=== PATIENT | female | born 1965 | race African-American/Black ===

== ENCOUNTER 2019-08-17 19:27 | Inpatient (IN) | payer OTHER ==
[2019-08-18] MEDS: HYDROcodone/Acetaminophen 10/325 mg Tablet PO PRN ×5 (00:25→21:26)
[2019-08-18] MEDS ORDERED: Non-Formulary Item 1 EACH (Omeprazole [Omeprazole] 20 MG) PO PRN (07:07)
[2019-08-18] MEDS ORDERED: TRIAMCINOLONE ACETONIDE TOP SCH (09:00)
[2019-08-18] MEDS ORDERED: Non-Formulary Item 1 EACH (Atorvastatin Calcium [Lipitor] 20 MG) PO SCH (09:00)
[2019-08-18] MEDS: Potassium Chloride 10 MEQ TAB PO SCH (09:33)
[2019-08-18] MEDS: Ferrous Gluconate 324 MG TAB PO SCH ×2 (09:34→21:18)
[2019-08-18] MEDS: Aspirin 81 mg Enteric Coated Tablet PO SCH ×2 (09:34→21:18)
[2019-08-18] MEDS: Triamcinolone 0.1% Cream 15 GM TUBE TOP SCH ×2 (09:35→21:21)
[2019-08-18] MEDS: Ibuprofen 800 MG TAB PO PRN (09:38)
[2019-08-18] MEDS ORDERED: Polyethylene Glycol 3350 17 GM Packet PO PRN (18:26)
[2019-08-18] MEDS ORDERED: FLU VACC QS2019-20(6MOS UP)/PF 60 MCG/0.5 ML SYRINGE IM ONE (21:00)
[2019-08-18] MEDS: Docusate 100 MG CAP PO SCH (21:17)
[2019-08-18] MEDS: Atorvastatin Calcium 10 MG TAB PO SCH (21:18)
[2019-08-19] MEDS: HYDROcodone/Acetaminophen 10/325 mg Tablet PO PRN ×4 (02:35→21:04)
[2019-08-19 05:07] LABS: #Basophils 0.1 thou/uL (0.0-0.2); #Eosinphils 0.5 thou/uL (0.0-0.7); #Lymphocytes 1.4 thou/uL (1.20-3.40); #Monocytes 0.6 thou/uL (0.11-0.59); #Neutrophils 4.2 thou/uL (1.40-6.50); %Eosinophils 7.4 % (0.0-10.0); %Lymphocytes 20.6 % (21.0-51.0); %Monocytes 8.7 % (0.0-10.0); %Neutrophils 61.4 % (42.0-75.0); Hemoglobin 9.2 g/dL (12.0-16.0); Mean Corpuscular HGB CONC 32.9 g/dL (32.0-36.0); Mean Corpuscular Hemoglobin 27.3 pg (27.0-31.0); Mean Corpuscular Volume 83.2 fL (78.0-98.0); Mean Platelet Volume 5.3 fL (7.4-10.4); Platelet Count 371 thou/uL (130-400); RBC Distribution Width 15.2 % (11.5-14.5); Red Blood Cell (RBC) Count 3.35 mill/uL (4.20-5.40); White Blood Cell (WBC) Count 6.9 thou/uL (4.8-10.8)
[2019-08-19 06:08] LABS: ALT (SGPT) Less than 7 U/L (8-55); AST (SGOT) 14 U/L (5-34); Albumin 3.2 g/dL (3.5-5.0); Alkaline Phosphatase 107 U/L (40-110); Anion Gap 15 mmol/L (10-20); BUN (Urea Nitrogen) 6 mg/dL (9.8-20.1); Bilirubin, Total 0.4 mg/dL (0.2-1.2); Calc. Creatinine Clearance 154 mL/min (70-130); Calcium 8.4 mg/dL (7.8-10.44); Carbon Dioxide 23 mmol/L (22-29); Chloride 106 mmol/L (98-107); Estimated GFR-MDRD Greater than 90; Globulin 3.8 g/dL (2.4-3.5); Glucose 113 mg/dL (70-105); Potassium 3.7 mmol/L (3.5-5.1); Sodium 140 mmol/L (136-145)
[2019-08-19] MEDS: Ferrous Gluconate 324 MG TAB PO SCH ×2 (08:53→20:59)
[2019-08-19] MEDS: Multivitamin W/ Minerals 1 TAB PO SCH (08:54)
[2019-08-19] MEDS: Potassium Chloride 10 MEQ TAB PO SCH (08:57)
[2019-08-19] MEDS: Aspirin 81 mg Enteric Coated Tablet PO SCH ×2 (08:58→20:59)
[2019-08-19] MEDS: Docusate 100 MG CAP PO SCH ×2 (08:59→20:59)
[2019-08-19] MEDS: Triamcinolone 0.1% Cream 15 GM TUBE TOP SCH ×2 (09:00→20:59)
[2019-08-19] MEDS ORDERED: Polyethylene Glycol 3350 17 GM Packet PO SCH (09:00)
[2019-08-19] MEDS: Atorvastatin Calcium 10 MG TAB PO SCH (20:59)
[2019-08-20] MEDS: HYDROcodone/Acetaminophen 10/325 mg Tablet PO PRN ×5 (03:24→22:53)
[2019-08-20] MEDS: Aspirin 81 mg Enteric Coated Tablet PO SCH ×2 (08:56→20:28)
[2019-08-20] MEDS: Docusate 100 MG CAP PO SCH ×3 (08:56→20:30)
[2019-08-20] MEDS: Ferrous Gluconate 324 MG TAB PO SCH ×2 (08:57→20:28)
[2019-08-20] MEDS: Triamcinolone 0.1% Cream 15 GM TUBE TOP SCH ×2 (08:57→20:29)
[2019-08-20] MEDS: Potassium Chloride 10 MEQ TAB PO SCH (08:58)
[2019-08-20] MEDS: Multivitamin W/ Minerals 1 TAB PO SCH (08:58)
[2019-08-20] MEDS: Atorvastatin Calcium 10 MG TAB PO SCH (20:28)
[2019-08-21] MEDS: HYDROcodone/Acetaminophen 10/325 mg Tablet PO PRN ×4 (03:48→21:07)
[2019-08-21] MEDS: Aspirin 81 mg Enteric Coated Tablet PO SCH ×2 (09:38→21:06)
[2019-08-21] MEDS: Potassium Chloride 10 MEQ TAB PO SCH (09:38)
[2019-08-21] MEDS: Multivitamin W/ Minerals 1 TAB PO SCH (09:38)
[2019-08-21] MEDS: Docusate 100 MG CAP PO SCH ×2 (09:40→21:09)
[2019-08-21] MEDS: Ferrous Gluconate 324 MG TAB PO SCH ×2 (09:40→21:06)
[2019-08-21] MEDS: Triamcinolone 0.1% Cream 15 GM TUBE TOP SCH ×2 (09:54→21:09)
--- NOTE | 2019-08-21 18:41 | HP ---
PRIMARY CARE PHYSICIAN: Lynn Johnson MD CHIEF COMPLAINT: Skilled care with physical and occupational therapy, status post right knee replacement. HISTORY OF PRESENT ILLNESS: Ms. Yu is a 54-year-old female with congestive heart failure, diastolic dysfunction, gastroesophageal reflux disease, hypertension, iron-deficiency anemia, rheumatoid arthritis, and degenerative knee joint disease, underwent elective right knee replacement on 08/10/[address] Ledemza. Patient did fine intra and postoperatively. Prior to her transfer, patient started physical therapy, she was able to maintain 50% partial weightbearing on right lower extremity. She was walking 100 feet using rolling walker, however, had significant fatigue and weakness. She has a poor gait, decreased strength and endurance hence recommendation for skilled rehabilitation with physical and occupational therapy. Today, she walked 80 feet using rolling walker with standby assistance. PAST MEDICAL HISTORY: 1. Congestive heart failure, diastolic dysfunction with EF of 55% to 60%. 2. Gastroesophageal reflux disease. 3. Hypertension. 4. Iron-deficiency anemia, under Dr. Moreno. 5. Rheumatoid arthritis, under Dr. Aldana. SURGICAL HISTORY: 1. Right knee replacement. 2. x2. 3. Tubal ligation. HOSPITALIZATION: Congestive heart failure exacerbation in 04/2014. ALLERGIES: POWDERS CAUSING RASH AND GLOVES. FAMILY HISTORY: Father alive, diagnosed with heart disease. Mother alive with hyperlipidemia. Maternal grandmother , unknown type of cancer. Paternal aunt had breast cancer. The patient has two brothers and two sisters. 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 Patient is single, has two boys. MEDICATION: 1. Aspirin 81 mg b.i.d. 2. Ferrous sulfate 324 mg b.i.d. 3. Multivitamin daily. 4. Metoprolol 25 mg daily. 5. Klor-Con 10 mEq daily. 6. Lipitor 20 mg daily. 7. Omeprazole 20 mg daily p.r.n. 8. Triamcinolone acetate 0.1% cream to affected areas as needed. 9. Methotrexate 50 mg/2 mL, 0.5 mL injection once a week. 10. Hydroxychloroquine 200 mg one tablet once a day. 11. Mobic 15 mg daily. 12. Folic acid 1 mg daily. REVIEW OF SYSTEMS: GENERAL: No fever, no chills, no weight loss. HEENT: Negative for blurring of vision. Negative for sore throat. RESPIRATORY: Negative for cough. Negative for dyspnea. CARDIAC: Negative for chest pain. Negative for cyanosis. Occasional lower extremity swelling. GI: Positive for constipation, improved with Colace. Negative for nausea or vomiting. GENITOURINARY: Negative for dysuria or hematuria. NEUROLOGIC: Negative for memory loss. Negative for seizures. Negative for paresthesias. MUSCULOSKELETAL: Positive for right knee pain related to surgery. Positive for left knee pain, likely secondary from arthritis. PSYCH: No anxiety or depression. PHYSICAL EXAMINATION: VITAL SIGNS: Blood pressure 134/63, temperature 98.9, pulse rate of 75, RR of 18, and O2 saturation 98% on room air. GENERAL: Patient is alert, oriented, not in respiratory distress. HEENT: Normocephalic, atraumatic. Pupils equal, reactive to light. NECK: Supple. Negative for lymphadenopathy. CHEST AND LUNGS: Symmetrical expansion. Clear to auscultation. HEART: Regular rate and rhythm. Negative for murmur. ABDOMEN: Obese, soft, normoactive bowel sounds. Negative for CVA tenderness. MUSCULOSKELETAL: Right knee, positive for right knee swelling with minimal effusion, no ecchymosis or bruising. Positive for medial and joint line tenderness. Decreased range of motion. Left lower extremity, no visible deformities. PSYCH: Appropriate affect and demeanor. ASSESSMENT: 1. Right lower extremity weakness, status post right total knee replacement on 08/10/2019. 2. Hypertension. 3. Congestive heart failure, diastolic dysfunction. 4. Rheumatoid arthritis. 5. Gastroesophageal reflux disease. 6. Iron-deficiency anemia. 7. Hyperlipidemia. PLAN: Continue physical and occupational therapy. Prognosis for significant improvement reasonable time appears good. We will monitor for infection, bleeding, and side effects of current medication. She will participate with physical therapy to address strength, range of motion, transfers, gait training, family training , and safety training with progression to home exercises. She will participate with OT to address ADLs. We will reconcile hospital medication and adjust dosage prior to her discharge. shopper marketing manager to address how the patient can be discharged safely and in a timely manner. Anticipate discharge to home in about two weeks. Job ID: [id number] MTDD
[2019-08-21] MEDS: Hydroxychloroquine Sulfate 200 MG TAB PO SCH (21:07)
[2019-08-21] MEDS: Atorvastatin Calcium 10 MG TAB PO SCH (21:07)
[2019-08-22] MEDS: HYDROcodone/Acetaminophen 10/325 mg Tablet PO PRN ×4 (02:57→20:53)
[2019-08-22] MEDS: Folic Acid 1 MG TAB PO SCH (08:22)
[2019-08-22] MEDS: Aspirin 81 mg Enteric Coated Tablet PO SCH ×2 (08:23→20:52)
[2019-08-22] MEDS: Multivitamin W/ Minerals 1 TAB PO SCH (08:23)
[2019-08-22] MEDS: Hydroxychloroquine Sulfate 200 MG TAB PO SCH ×2 (08:23→20:53)
[2019-08-22] MEDS: Docusate 100 MG CAP PO SCH ×2 (08:23→20:53)
[2019-08-22] MEDS: Ferrous Gluconate 324 MG TAB PO SCH ×2 (08:23→20:52)
[2019-08-22] MEDS: Potassium Chloride 10 MEQ TAB PO SCH (08:24)
[2019-08-22] MEDS: Triamcinolone 0.1% Cream 15 GM TUBE TOP SCH ×2 (08:26→20:55)
[2019-08-22] MEDS: Ibuprofen 800 MG TAB PO PRN (17:36)
[2019-08-22] MEDS: Atorvastatin Calcium 10 MG TAB PO SCH (20:52)
[2019-08-23] MEDS: HYDROcodone/Acetaminophen 10/325 mg Tablet PO PRN ×4 (03:24→23:39)
[2019-08-23] MEDS: Potassium Chloride 10 MEQ TAB PO SCH (08:49)
[2019-08-23] MEDS: Aspirin 81 mg Enteric Coated Tablet PO SCH ×2 (08:49→20:35)
[2019-08-23] MEDS: Folic Acid 1 MG TAB PO SCH (08:50)
[2019-08-23] MEDS: Multivitamin W/ Minerals 1 TAB PO SCH (08:50)
[2019-08-23] MEDS: Ferrous Gluconate 324 MG TAB PO SCH ×2 (08:50→20:36)
[2019-08-23] MEDS: Hydroxychloroquine Sulfate 200 MG TAB PO SCH ×2 (08:50→20:36)
[2019-08-23] MEDS: Docusate 100 MG CAP PO SCH ×2 (08:50→20:35)
[2019-08-23] MEDS: Triamcinolone 0.1% Cream 15 GM TUBE TOP SCH ×2 (08:52→20:37)
[2019-08-23] MEDS: Ibuprofen 800 MG TAB PO PRN (13:51)
[2019-08-23] MEDS: Atorvastatin Calcium 10 MG TAB PO SCH (20:35)
[2019-08-24] MEDS: HYDROcodone/Acetaminophen 10/325 mg Tablet PO PRN ×3 (05:48→20:10)
[2019-08-24] MEDS: Multivitamin W/ Minerals 1 TAB PO SCH (09:21)
[2019-08-24] MEDS: Aspirin 81 mg Enteric Coated Tablet PO SCH ×2 (09:21→20:10)
[2019-08-24] MEDS: Ferrous Gluconate 324 MG TAB PO SCH ×2 (09:22→20:10)
[2019-08-24] MEDS: Docusate 100 MG CAP PO SCH ×2 (09:22→20:11)
[2019-08-24] MEDS: Potassium Chloride 10 MEQ TAB PO SCH (09:22)
[2019-08-24] MEDS: Hydroxychloroquine Sulfate 200 MG TAB PO SCH ×2 (09:23→20:10)
[2019-08-24] MEDS: Triamcinolone 0.1% Cream 15 GM TUBE TOP SCH ×2 (09:23→20:11)
[2019-08-24] MEDS: Folic Acid 1 MG TAB PO SCH (09:23)
[2019-08-24] MEDS: Atorvastatin Calcium 10 MG TAB PO SCH (20:10)
[2019-08-25] MEDS: HYDROcodone/Acetaminophen 10/325 mg Tablet PO PRN ×4 (02:57→22:08)
[2019-08-25] MEDS: Multivitamin W/ Minerals 1 TAB PO SCH (08:59)
[2019-08-25] MEDS: Ferrous Gluconate 324 MG TAB PO SCH ×2 (08:59→20:27)
[2019-08-25] MEDS: Folic Acid 1 MG TAB PO SCH (08:59)
[2019-08-25] MEDS: Aspirin 81 mg Enteric Coated Tablet PO SCH ×2 (08:59→20:27)
[2019-08-25] MEDS: Potassium Chloride 10 MEQ TAB PO SCH (08:59)
[2019-08-25] MEDS: Hydroxychloroquine Sulfate 200 MG TAB PO SCH ×2 (09:00→20:27)
[2019-08-25] MEDS: Triamcinolone 0.1% Cream 15 GM TUBE TOP SCH ×2 (09:00→20:28)
[2019-08-25] MEDS: Docusate 100 MG CAP PO SCH ×2 (09:01→20:28)
[2019-08-25] MEDS: Atorvastatin Calcium 10 MG TAB PO SCH (20:27)
[2019-08-26] MEDS: HYDROcodone/Acetaminophen 10/325 mg Tablet PO PRN ×4 (04:31→23:22)
[2019-08-26] MEDS: Multivitamin W/ Minerals 1 TAB PO SCH (09:53)
[2019-08-26] MEDS: Folic Acid 1 MG TAB PO SCH (09:53)
[2019-08-26] MEDS: Ferrous Gluconate 324 MG TAB PO SCH ×2 (09:53→20:43)
[2019-08-26] MEDS: Aspirin 81 mg Enteric Coated Tablet PO SCH ×2 (09:53→20:44)
[2019-08-26] MEDS: Hydroxychloroquine Sulfate 200 MG TAB PO SCH ×2 (09:53→20:44)
[2019-08-26] MEDS: Docusate 100 MG CAP PO SCH ×2 (09:53→20:44)
[2019-08-26] MEDS: Potassium Chloride 10 MEQ TAB PO SCH (09:54)
[2019-08-26] MEDS: Triamcinolone 0.1% Cream 15 GM TUBE TOP SCH ×2 (10:10→20:54)
[2019-08-26] MEDS: Atorvastatin Calcium 10 MG TAB PO SCH (20:44)
[2019-08-27] MEDS: HYDROcodone/Acetaminophen 10/325 mg Tablet PO PRN ×3 (05:36→18:33)
[2019-08-27] MEDS: Aspirin 81 mg Enteric Coated Tablet PO SCH ×2 (09:10→20:30)
[2019-08-27] MEDS: Docusate 100 MG CAP PO SCH ×2 (09:10→20:30)
[2019-08-27] MEDS: Multivitamin W/ Minerals 1 TAB PO SCH (09:10)
[2019-08-27] MEDS: Hydroxychloroquine Sulfate 200 MG TAB PO SCH ×2 (09:10→20:30)
[2019-08-27] MEDS: Ferrous Gluconate 324 MG TAB PO SCH ×2 (09:10→20:30)
[2019-08-27] MEDS: Potassium Chloride 10 MEQ TAB PO SCH (09:10)
[2019-08-27] MEDS: Folic Acid 1 MG TAB PO SCH (09:10)
[2019-08-27] MEDS: Triamcinolone 0.1% Cream 15 GM TUBE TOP SCH ×2 (09:30→20:31)
--- NOTE | 2019-08-27 17:24 | PRG ---
DATE OF SERVICE: 08/25/2019 SUBJECTIVE: The patient denies any major complaints, she is participating well with physical therapy. She walked about 316 feet this morning using her rolling walker with contact guard assist. OBJECTIVE: VITAL SIGNS: Blood pressure 129/62, temperature 98.2, heart rate 77, respirations 18, O2 saturation 98% on room air. GENERAL: The patient is alert, oriented, not in respiratory distress. HEENT: Normocephalic and atraumatic. Pupils are equally reactive to light. NECK: Supple. Negative for lymphadenopathy. CHEST AND LUNGS: Symmetrical expansion, decreased breath sounds due to body habitus. MUSCULOSKELETAL: Positive for right knee swelling, decreased range of motion. Positive for midline and joint line tenderness. Left lower extremity, no visible deformities, positive for midline and lateral joint line tenderness. Negative for Homans sign. PSYCHIATRIC: Appropriate affect and demeanor. ASSESSMENT: 1. Right lower extremity weakness status post right total knee replacement. 2. Hypertension. 3. Congestive heart failure, diastolic dysfunction. 4. Rheumatoid arthritis. 5. Gastroesophageal reflux disease. 6. Iron-deficiency anemia. 7. Hyperlipidemia. 8. Morbid obesity. 9. Gait instability. PLAN: Continue physical and occupational therapy. She is participating well with physical and occupational therapy. We will send medical supply to [facility] in [place] in preparation for her discharge. Likely discharge to home within the next two weeks. Job ID: [id number]
[2019-08-27] MEDS: Atorvastatin Calcium 10 MG TAB PO SCH (20:30)
[2019-08-28] MEDS: HYDROcodone/Acetaminophen 10/325 mg Tablet PO PRN ×4 (01:42→23:47)
[2019-08-28] MEDS: Potassium Chloride 10 MEQ TAB PO SCH (09:38)
[2019-08-28] MEDS: Folic Acid 1 MG TAB PO SCH (09:38)
[2019-08-28] MEDS: Hydroxychloroquine Sulfate 200 MG TAB PO SCH ×2 (09:38→20:13)
[2019-08-28] MEDS: Aspirin 81 mg Enteric Coated Tablet PO SCH ×2 (09:39→20:13)
[2019-08-28] MEDS: Docusate 100 MG CAP PO SCH ×2 (09:39→20:13)
[2019-08-28] MEDS: Ferrous Gluconate 324 MG TAB PO SCH ×2 (09:39→20:13)
[2019-08-28] MEDS: Multivitamin W/ Minerals 1 TAB PO SCH (09:39)
[2019-08-28] MEDS: Triamcinolone 0.1% Cream 15 GM TUBE TOP SCH ×2 (10:38→20:14)
[2019-08-28] MEDS: Atorvastatin Calcium 10 MG TAB PO SCH (20:12)
[2019-08-29] MEDS: Potassium Chloride 10 MEQ TAB PO SCH (09:08)
[2019-08-29] MEDS: Ferrous Gluconate 324 MG TAB PO SCH ×2 (09:08→20:13)
[2019-08-29] MEDS: Folic Acid 1 MG TAB PO SCH (09:08)
[2019-08-29] MEDS: Hydroxychloroquine Sulfate 200 MG TAB PO SCH ×2 (09:08→20:12)
[2019-08-29] MEDS: Docusate 100 MG CAP PO SCH ×2 (09:09→20:13)
[2019-08-29] MEDS: Aspirin 81 mg Enteric Coated Tablet PO SCH ×2 (09:09→20:12)
[2019-08-29] MEDS: Triamcinolone 0.1% Cream 15 GM TUBE TOP SCH ×2 (09:09→20:13)
[2019-08-29] MEDS: Multivitamin W/ Minerals 1 TAB PO SCH (09:09)
[2019-08-29] MEDS: HYDROcodone/Acetaminophen 10/325 mg Tablet PO PRN ×2 (11:45→20:14)
[2019-08-29] MEDS: Atorvastatin Calcium 10 MG TAB PO SCH (20:13)
[2019-08-30] MEDS: HYDROcodone/Acetaminophen 10/325 mg Tablet PO PRN ×3 (04:41→20:24)
[2019-08-30] MEDS: Folic Acid 1 MG TAB PO SCH (09:12)
[2019-08-30] MEDS: Potassium Chloride 10 MEQ TAB PO SCH (09:12)
[2019-08-30] MEDS: Multivitamin W/ Minerals 1 TAB PO SCH (09:12)
[2019-08-30] MEDS: Aspirin 81 mg Enteric Coated Tablet PO SCH ×2 (09:12→20:23)
[2019-08-30] MEDS: Docusate 100 MG CAP PO SCH ×2 (09:12→20:23)
[2019-08-30] MEDS: Ferrous Gluconate 324 MG TAB PO SCH ×2 (09:13→20:24)
[2019-08-30] MEDS: Triamcinolone 0.1% Cream 15 GM TUBE TOP SCH ×2 (09:14→20:24)
[2019-08-30] MEDS: Ibuprofen 800 MG TAB PO PRN (09:27)
[2019-08-30] MEDS: Hydroxychloroquine Sulfate 200 MG TAB PO SCH ×2 (09:27→20:24)
[2019-08-30] MEDS ORDERED: Sulfameth/Trimethoprim DS 800-160mg TAB PO SCH (11:45)
[2019-08-30] MEDS: Atorvastatin Calcium 10 MG TAB PO SCH (20:23)
[2019-08-30] MEDS: Sulfameth/Trimethoprim DS 800-160mg TAB PO SCH (21:10)
[2019-08-31] MEDS: HYDROcodone/Acetaminophen 10/325 mg Tablet PO PRN ×3 (05:34→20:38)
[2019-08-31] MEDS: Ibuprofen 800 MG TAB PO PRN (08:38)
[2019-08-31] MEDS: Docusate 100 MG CAP PO SCH ×3 (08:38→20:39)
[2019-08-31] MEDS: Sulfameth/Trimethoprim DS 800-160mg TAB PO SCH ×2 (08:38→20:39)
[2019-08-31] MEDS: Ferrous Gluconate 324 MG TAB PO SCH ×2 (08:38→20:39)
[2019-08-31] MEDS: Multivitamin W/ Minerals 1 TAB PO SCH (08:38)
[2019-08-31] MEDS: Hydroxychloroquine Sulfate 200 MG TAB PO SCH ×2 (08:38→20:39)
[2019-08-31] MEDS: Folic Acid 1 MG TAB PO SCH (08:38)
[2019-08-31] MEDS: Potassium Chloride 10 MEQ TAB PO SCH (08:38)
[2019-08-31] MEDS: Aspirin 81 mg Enteric Coated Tablet PO SCH ×2 (08:39→20:38)
[2019-08-31] MEDS: Triamcinolone 0.1% Cream 15 GM TUBE TOP SCH ×2 (08:39→20:42)
[2019-08-31] MEDS: Atorvastatin Calcium 10 MG TAB PO SCH (20:37)
[2019-09-01] MEDS: Ibuprofen 800 MG TAB PO PRN (04:37)
[2019-09-01] MEDS: HYDROcodone/Acetaminophen 10/325 mg Tablet PO PRN ×2 (08:25→15:07)
[2019-09-01] MEDS: Sulfameth/Trimethoprim DS 800-160mg TAB PO SCH ×2 (08:27→20:26)
[2019-09-01] MEDS: Multivitamin W/ Minerals 1 TAB PO SCH (08:27)
[2019-09-01] MEDS: Docusate 100 MG CAP PO SCH ×2 (08:27→20:26)
[2019-09-01] MEDS: Aspirin 81 mg Enteric Coated Tablet PO SCH ×2 (08:27→20:26)
[2019-09-01] MEDS: Hydroxychloroquine Sulfate 200 MG TAB PO SCH ×2 (08:27→20:26)
[2019-09-01] MEDS: Ferrous Gluconate 324 MG TAB PO SCH ×2 (08:27→20:26)
[2019-09-01] MEDS: Potassium Chloride 10 MEQ TAB PO SCH (08:27)
[2019-09-01] MEDS: Folic Acid 1 MG TAB PO SCH (08:28)
[2019-09-01] MEDS: Triamcinolone 0.1% Cream 15 GM TUBE TOP SCH ×2 (08:32→20:31)
[2019-09-01 09:14] VITALS: BMI 46.7
[2019-09-01] MEDS: Atorvastatin Calcium 10 MG TAB PO SCH (20:26)
[2019-09-02] MEDS: Multivitamin W/ Minerals 1 TAB PO SCH (08:33)
[2019-09-02] MEDS: Folic Acid 1 MG TAB PO SCH (08:34)
[2019-09-02] MEDS: Docusate 100 MG CAP PO SCH ×2 (08:34→20:22)
[2019-09-02] MEDS: Hydroxychloroquine Sulfate 200 MG TAB PO SCH ×2 (08:34→20:22)
[2019-09-02] MEDS: Potassium Chloride 10 MEQ TAB PO SCH (08:34)
[2019-09-02] MEDS: Sulfameth/Trimethoprim DS 800-160mg TAB PO SCH ×2 (08:34→20:22)
[2019-09-02] MEDS: Ferrous Gluconate 324 MG TAB PO SCH ×2 (08:34→20:22)
[2019-09-02] MEDS: Aspirin 81 mg Enteric Coated Tablet PO SCH ×2 (08:35→20:22)
[2019-09-02] MEDS: HYDROcodone/Acetaminophen 10/325 mg Tablet PO PRN ×2 (08:37→20:21)
[2019-09-02] MEDS: Triamcinolone 0.1% Cream 15 GM TUBE TOP SCH ×2 (08:50→20:22)
[2019-09-02] MEDS: Atorvastatin Calcium 10 MG TAB PO SCH (20:21)
[2019-09-03] MEDS: HYDROcodone/Acetaminophen 10/325 mg Tablet PO PRN ×3 (06:10→23:59)
[2019-09-03] MEDS: Ferrous Gluconate 324 MG TAB PO SCH ×2 (08:38→20:34)
[2019-09-03] MEDS: Potassium Chloride 10 MEQ TAB PO SCH (08:38)
[2019-09-03] MEDS: Folic Acid 1 MG TAB PO SCH (08:38)
[2019-09-03] MEDS: Aspirin 81 mg Enteric Coated Tablet PO SCH ×2 (08:38→20:34)
[2019-09-03] MEDS: Sulfameth/Trimethoprim DS 800-160mg TAB PO SCH ×2 (08:38→20:34)
[2019-09-03] MEDS: Multivitamin W/ Minerals 1 TAB PO SCH (08:38)
[2019-09-03] MEDS: Hydroxychloroquine Sulfate 200 MG TAB PO SCH ×2 (08:38→20:34)
[2019-09-03] MEDS: Triamcinolone 0.1% Cream 15 GM TUBE TOP SCH ×2 (08:40→20:34)
[2019-09-03] MEDS: Docusate 100 MG CAP PO SCH ×2 (08:40→20:34)
[2019-09-03] MEDS: Atorvastatin Calcium 10 MG TAB PO SCH (20:34)
[2019-09-04] MEDS: Multivitamin W/ Minerals 1 TAB PO SCH (08:41)
[2019-09-04] MEDS: Sulfameth/Trimethoprim DS 800-160mg TAB PO SCH ×2 (08:41→20:57)
[2019-09-04] MEDS: Aspirin 81 mg Enteric Coated Tablet PO SCH ×2 (08:41→20:56)
[2019-09-04] MEDS: Potassium Chloride 10 MEQ TAB PO SCH (08:41)
[2019-09-04] MEDS: Hydroxychloroquine Sulfate 200 MG TAB PO SCH ×2 (08:41→20:57)
[2019-09-04] MEDS: Docusate 100 MG CAP PO SCH ×2 (08:42→20:56)
[2019-09-04] MEDS: Ferrous Gluconate 324 MG TAB PO SCH ×2 (08:42→20:57)
[2019-09-04] MEDS: Folic Acid 1 MG TAB PO SCH (08:42)
[2019-09-04] MEDS: Triamcinolone 0.1% Cream 15 GM TUBE TOP SCH ×2 (08:43→20:57)
[2019-09-04] MEDS: Ibuprofen 800 MG TAB PO PRN ×2 (14:57→20:56)
[2019-09-04] MEDS: Atorvastatin Calcium 10 MG TAB PO SCH (20:56)
[2019-09-05] MEDS: Aspirin 81 mg Enteric Coated Tablet PO SCH ×2 (08:50→20:43)
[2019-09-05] MEDS: Multivitamin W/ Minerals 1 TAB PO SCH (08:50)
[2019-09-05] MEDS: Folic Acid 1 MG TAB PO SCH (08:50)
[2019-09-05] MEDS: Sulfameth/Trimethoprim DS 800-160mg TAB PO SCH ×2 (08:50→20:43)
[2019-09-05] MEDS: Potassium Chloride 10 MEQ TAB PO SCH (08:50)
[2019-09-05] MEDS: Hydroxychloroquine Sulfate 200 MG TAB PO SCH ×2 (08:50→20:42)
[2019-09-05] MEDS: Ferrous Gluconate 324 MG TAB PO SCH ×2 (08:50→20:43)
[2019-09-05] MEDS: Triamcinolone 0.1% Cream 15 GM TUBE TOP SCH ×2 (08:51→20:46)
[2019-09-05] MEDS: Ibuprofen 800 MG TAB PO PRN (08:51)
[2019-09-05] MEDS: Docusate 100 MG CAP PO SCH ×2 (08:51→20:43)
[2019-09-05] MEDS: HYDROcodone/Acetaminophen 10/325 mg Tablet PO PRN (20:42)
[2019-09-05] MEDS: Atorvastatin Calcium 10 MG TAB PO SCH (20:43)
[2019-09-06] MEDS: Ferrous Gluconate 324 MG TAB PO SCH (08:55)
[2019-09-06] MEDS: Potassium Chloride 10 MEQ TAB PO SCH (08:55)
[2019-09-06] MEDS: Multivitamin W/ Minerals 1 TAB PO SCH (08:55)
[2019-09-06] MEDS: Sulfameth/Trimethoprim DS 800-160mg TAB PO SCH (08:55)
[2019-09-06] MEDS: Triamcinolone 0.1% Cream 15 GM TUBE TOP SCH (08:56)
[2019-09-06] MEDS: Aspirin 81 mg Enteric Coated Tablet PO SCH (08:56)
[2019-09-06] MEDS: Docusate 100 MG CAP PO SCH (08:56)
[2019-09-06] MEDS: Hydroxychloroquine Sulfate 200 MG TAB PO SCH (08:56)
[2019-09-06] MEDS: Folic Acid 1 MG TAB PO SCH (08:56)
[2019-09-06] MEDS: HYDROcodone/Acetaminophen 10/325 mg Tablet PO PRN (08:56)
[2019-09-06 11:54] VITALS: BP 139/65; TEMP 98.3
== END 2019-09-06 12:25 | disposition home or self-care (01) | DRG 560 ==
LOC: BURMED 20:59
PROVIDERS: ADMIT Family Medicine; ATTEND Family Medicine
DX: Z47.1 Aftercare following joint replacement surgery (principal); I50.32 Chronic diastolic (congestive) heart failure; Z68.42 Body mass index [BMI] 45.0-49.9, adult; I11.0 Hypertensive heart disease with heart failure; K21.9 Gastro-esophageal reflux disease without esophagitis; M06.9 Rheumatoid arthritis, unspecified; R53.1 Weakness; E78.5 Hyperlipidemia, unspecified; D50.9 Iron deficiency anemia, unspecified; E66.01 Morbid (severe) obesity due to excess calories; R26.81 Unsteadiness on feet; Z98.51 Tubal ligation status; Z79.82 Long term (current) use of aspirin
CPT/HCPCS: 36415; 80053; 85025

== ENCOUNTER 2020-03-20 16:35 | Inpatient (IN) | payer OTHER ==
[2020-03-20] MEDS ORDERED: Acetaminophen ER (8hr) 650 MG TAB PO PRN (17:31)
[2020-03-20] MEDS ORDERED: Docusate 100 MG CAP PO PRN (17:31)
[2020-03-20] MEDS: HYDROcodone/Acetaminophen 10/325 mg Tablet PO PRN (18:26)
[2020-03-20] MEDS ORDERED: Nystatin Powder 15 GM BOT TOP PRN (20:08)
[2020-03-20] MEDS: Nystatin Powder 15 GM BOT TOP SCH (20:35)
[2020-03-20] MEDS: Aspirin 81 mg Enteric Coated Tablet PO SCH (20:35)
[2020-03-20] MEDS: Triamcinolone 0.1% Cream 15 GM TUBE TOP SCH (20:35)
[2020-03-21] MEDS: HYDROcodone/Acetaminophen 10/325 mg Tablet PO PRN ×4 (00:21→21:44)
[2020-03-21] MEDS: Triamcinolone 0.1% Cream 15 GM TUBE TOP SCH ×2 (09:22→21:47)
[2020-03-21] MEDS: Atorvastatin Calcium 10 MG TAB PO SCH (09:24)
[2020-03-21] MEDS: Folic Acid 1 MG TAB PO SCH (09:32)
[2020-03-21] MEDS: Multivitamin W/ Minerals 1 TAB PO SCH (09:32)
[2020-03-21] MEDS: Hydroxychloroquine Sulfate 200 MG TAB PO SCH (09:32)
[2020-03-21] MEDS: Potassium Chloride 10 MEQ TAB PO SCH (09:33)
[2020-03-21] MEDS: Aspirin 81 mg Enteric Coated Tablet PO SCH ×2 (09:33→21:44)
[2020-03-21] MEDS: Nystatin Powder 15 GM BOT TOP SCH ×2 (09:34→21:46)
[2020-03-22] MEDS: HYDROcodone/Acetaminophen 10/325 mg Tablet PO PRN ×3 (05:54→21:33)
[2020-03-22] MEDS: Atorvastatin Calcium 10 MG TAB PO SCH (09:09)
[2020-03-22] MEDS: Potassium Chloride 10 MEQ TAB PO SCH (09:09)
[2020-03-22] MEDS: Hydroxychloroquine Sulfate 200 MG TAB PO SCH (09:09)
[2020-03-22] MEDS: Folic Acid 1 MG TAB PO SCH (09:10)
[2020-03-22] MEDS: Ferrous Gluconate 324 MG TAB PO SCH (09:10)
[2020-03-22] MEDS: Multivitamin W/ Minerals 1 TAB PO SCH (09:12)
[2020-03-22] MEDS: Aspirin 81 mg Enteric Coated Tablet PO SCH ×2 (09:13→21:34)
[2020-03-22] MEDS: Triamcinolone 0.1% Cream 15 GM TUBE TOP SCH ×2 (09:15→21:35)
[2020-03-22] MEDS: Nystatin Powder 15 GM BOT TOP SCH ×2 (09:15→21:35)
[2020-03-23] MEDS: HYDROcodone/Acetaminophen 10/325 mg Tablet PO PRN ×3 (05:18→21:39)
[2020-03-23] MEDS: Atorvastatin Calcium 10 MG TAB PO SCH (09:40)
[2020-03-23] MEDS: Potassium Chloride 10 MEQ TAB PO SCH (09:40)
[2020-03-23] MEDS: Hydroxychloroquine Sulfate 200 MG TAB PO SCH (09:40)
[2020-03-23] MEDS: Folic Acid 1 MG TAB PO SCH (09:40)
[2020-03-23] MEDS: Aspirin 81 mg Enteric Coated Tablet PO SCH ×2 (09:41→21:39)
[2020-03-23] MEDS: Multivitamin W/ Minerals 1 TAB PO SCH (09:41)
[2020-03-23] MEDS: Triamcinolone 0.1% Cream 15 GM TUBE TOP SCH ×2 (09:42→21:42)
[2020-03-23] MEDS: Nystatin Powder 15 GM BOT TOP SCH ×2 (09:43→21:41)
[2020-03-24] MEDS: HYDROcodone/Acetaminophen 10/325 mg Tablet PO PRN ×4 (03:04→20:46)
[2020-03-24] MEDS: Multivitamin W/ Minerals 1 TAB PO SCH (10:01)
[2020-03-24] MEDS: Hydroxychloroquine Sulfate 200 MG TAB PO SCH (10:01)
[2020-03-24] MEDS: Ferrous Gluconate 324 MG TAB PO SCH (10:01)
[2020-03-24] MEDS: Aspirin 81 mg Enteric Coated Tablet PO SCH ×2 (10:02→20:42)
[2020-03-24] MEDS: Potassium Chloride 10 MEQ TAB PO SCH (10:02)
[2020-03-24] MEDS: Folic Acid 1 MG TAB PO SCH (10:02)
[2020-03-24] MEDS: Atorvastatin Calcium 10 MG TAB PO SCH (10:03)
[2020-03-24] MEDS: Nystatin Powder 15 GM BOT TOP SCH ×2 (10:06→20:43)
[2020-03-24] MEDS: Triamcinolone 0.1% Cream 15 GM TUBE TOP SCH ×2 (10:06→20:44)
[2020-03-25] MEDS: HYDROcodone/Acetaminophen 10/325 mg Tablet PO PRN ×3 (06:05→23:54)
[2020-03-25] MEDS: Aspirin 81 mg Enteric Coated Tablet PO SCH ×2 (07:59→20:50)
[2020-03-25] MEDS: Potassium Chloride 10 MEQ TAB PO SCH (07:59)
[2020-03-25] MEDS: Hydroxychloroquine Sulfate 200 MG TAB PO SCH (07:59)
[2020-03-25] MEDS: Multivitamin W/ Minerals 1 TAB PO SCH (07:59)
[2020-03-25] MEDS: Amlodipine 5 MG TAB PO SCH (08:00)
[2020-03-25] MEDS: Atorvastatin Calcium 10 MG TAB PO SCH (08:00)
[2020-03-25] MEDS: Folic Acid 1 MG TAB PO SCH (08:01)
[2020-03-25] MEDS: Nystatin Powder 15 GM BOT TOP SCH ×2 (09:00→20:50)
[2020-03-25] MEDS: Triamcinolone 0.1% Cream 15 GM TUBE TOP SCH ×2 (09:00→20:51)
[2020-03-26] MEDS: HYDROcodone/Acetaminophen 10/325 mg Tablet PO PRN ×2 (08:06→17:54)
[2020-03-26] MEDS: Atorvastatin Calcium 10 MG TAB PO SCH (08:07)
[2020-03-26] MEDS: Potassium Chloride 10 MEQ TAB PO SCH (08:09)
[2020-03-26] MEDS: Aspirin 81 mg Enteric Coated Tablet PO SCH ×2 (08:09→20:16)
[2020-03-26] MEDS: Multivitamin W/ Minerals 1 TAB PO SCH (08:09)
[2020-03-26] MEDS: Folic Acid 1 MG TAB PO SCH (08:10)
[2020-03-26] MEDS: Ferrous Gluconate 324 MG TAB PO SCH (08:10)
[2020-03-26] MEDS: Amlodipine 5 MG TAB PO SCH (08:10)
[2020-03-26] MEDS: Hydroxychloroquine Sulfate 200 MG TAB PO SCH (08:10)
[2020-03-26] MEDS: Nystatin Powder 15 GM BOT TOP SCH ×2 (09:00→20:15)
[2020-03-26] MEDS: Triamcinolone 0.1% Cream 15 GM TUBE TOP SCH ×2 (09:00→20:15)
[2020-03-27] MEDS: HYDROcodone/Acetaminophen 10/325 mg Tablet PO PRN ×4 (01:29→22:13)
[2020-03-27] MEDS: Potassium Chloride 10 MEQ TAB PO SCH (07:51)
[2020-03-27] MEDS: Multivitamin W/ Minerals 1 TAB PO SCH (07:51)
[2020-03-27] MEDS: Hydroxychloroquine Sulfate 200 MG TAB PO SCH (07:52)
[2020-03-27] MEDS: Atorvastatin Calcium 10 MG TAB PO SCH (07:52)
[2020-03-27] MEDS: Amlodipine 5 MG TAB PO SCH (07:53)
[2020-03-27] MEDS: Folic Acid 1 MG TAB PO SCH ×2 (07:54→07:59)
[2020-03-27] MEDS: Aspirin 81 mg Enteric Coated Tablet PO SCH ×2 (07:54→20:50)
[2020-03-27] MEDS: Triamcinolone 0.1% Cream 15 GM TUBE TOP SCH ×2 (07:55→20:50)
[2020-03-27] MEDS: Nystatin Powder 15 GM BOT TOP SCH ×2 (07:55→20:50)
[2020-03-28] MEDS: HYDROcodone/Acetaminophen 10/325 mg Tablet PO PRN ×3 (05:32→20:49)
[2020-03-28] MEDS: Potassium Chloride 10 MEQ TAB PO SCH (08:49)
[2020-03-28] MEDS: Multivitamin W/ Minerals 1 TAB PO SCH (08:49)
[2020-03-28] MEDS: Aspirin 81 mg Enteric Coated Tablet PO SCH ×2 (08:49→20:46)
[2020-03-28] MEDS: Atorvastatin Calcium 10 MG TAB PO SCH (08:49)
[2020-03-28] MEDS: Ferrous Gluconate 324 MG TAB PO SCH (08:49)
[2020-03-28] MEDS: Amlodipine 5 MG TAB PO SCH (08:50)
[2020-03-28] MEDS: Hydroxychloroquine Sulfate 200 MG TAB PO SCH (08:51)
[2020-03-28] MEDS: Nystatin Powder 15 GM BOT TOP SCH ×2 (08:52→20:47)
[2020-03-28] MEDS: Triamcinolone 0.1% Cream 15 GM TUBE TOP SCH ×2 (08:53→20:47)
[2020-03-29] MEDS: HYDROcodone/Acetaminophen 10/325 mg Tablet PO PRN ×3 (06:34→20:39)
[2020-03-29] MEDS: Potassium Chloride 10 MEQ TAB PO SCH (08:47)
[2020-03-29] MEDS: Hydroxychloroquine Sulfate 200 MG TAB PO SCH (08:47)
[2020-03-29] MEDS: Aspirin 81 mg Enteric Coated Tablet PO SCH ×2 (08:47→20:38)
[2020-03-29] MEDS: Atorvastatin Calcium 10 MG TAB PO SCH (08:48)
[2020-03-29] MEDS: Amlodipine 5 MG TAB PO SCH (08:49)
[2020-03-29] MEDS: Multivitamin W/ Minerals 1 TAB PO SCH (08:51)
[2020-03-29] MEDS: Folic Acid 1 MG TAB PO SCH (08:52)
[2020-03-29] MEDS: Nystatin Powder 15 GM BOT TOP SCH ×2 (08:53→21:59)
[2020-03-29] MEDS: Triamcinolone 0.1% Cream 15 GM TUBE TOP SCH ×2 (08:53→21:59)
[2020-03-29 09:57] VITALS: BMI 47.2
[2020-03-30] MEDS: HYDROcodone/Acetaminophen 10/325 mg Tablet PO PRN ×2 (04:56→10:57)
[2020-03-30 06:35] VITALS: BP 178/70; TEMP 98.2
[2020-03-30] MEDS: Hydroxychloroquine Sulfate 200 MG TAB PO SCH (08:43)
[2020-03-30] MEDS: Multivitamin W/ Minerals 1 TAB PO SCH (08:43)
[2020-03-30] MEDS: Folic Acid 1 MG TAB PO SCH (08:43)
[2020-03-30] MEDS: Potassium Chloride 10 MEQ TAB PO SCH (08:44)
[2020-03-30] MEDS: Amlodipine 5 MG TAB PO SCH (08:44)
[2020-03-30] MEDS: Ferrous Gluconate 324 MG TAB PO SCH (08:45)
[2020-03-30] MEDS: Aspirin 81 mg Enteric Coated Tablet PO SCH (08:45)
[2020-03-30] MEDS: Atorvastatin Calcium 10 MG TAB PO SCH (08:46)
[2020-03-30] MEDS: Nystatin Powder 15 GM BOT TOP SCH (08:55)
[2020-03-30] MEDS: Triamcinolone 0.1% Cream 15 GM TUBE TOP SCH (08:55)
--- NOTE | 2020-03-30 11:53 | DIS ---
DATE OF ADMISSION: 03/20/2020 DATE OF DISCHARGE: 03/30/2020 ADMISSION DIAGNOSIS: Status post left total knee arthroplasty. SECONDARY DIAGNOSES: Rheumatoid arthritis, hypertension, dyslipidemia, iron deficiency anemia, and gastroesophageal reflux disease. PROCEDURES: None. HOSPITAL COURSE: A 54-year-old female presented to our residential facility at [facility] to participate with physical therapy, status post left total knee arthroplasty via Dr. Ledezma on 03/16/2020. The patient was able to steadily improve in regard to her mobility and functional status while working with therapy. Her pain was controlled throughout her stay. She displayed no signs or symptoms of infection during her stay. Her intake and output are at baseline. Her blood pressure did trend high during her stay and thus, amlodipine 5 mg was added to her daily antihypertensive medication regimen. The patient had no acute setbacks during her stay and has improved sufficiently to be able to return back to her home setting. She has been set up with outpatient therapy at the [facility] to continue her progress. DISPOSITION: The patient will discharge home and may follow up with her primary care provider Dr. Lynn Johnson in 1 week. She is scheduled to follow up with Dr. Ledezma on 04/04/2020. DISCHARGE MEDICATIONS: One new medication is amlodipine 5 mg daily. She is to resume her usual medications otherwise which include; 1. Potassium chloride 10 mEq daily. 2. Omeprazole 20 mg daily p.r.n. 3. Multivitamin Theragran one tablet daily. 4. Metoprolol succinate 37.5 mg daily. 5. Hydroxychloroquine 200 mg daily. 6. [place] 10/325 q.4 hours p.r.n. 7. Folic acid 1 mg daily. 8. Ferrous gluconate 324 mg q.48 hours. 9. Docusate 100 mg b.i.d. p.r.n. 10. Atorvastatin 20 mg daily. 11. Aspirin 81 mg b.i.d. 12. Tylenol q.8 hours p.r.n. Total time spent in discharge of this patient greater than 30 minute. Job ID: [id number] MTDD
== END 2020-03-30 13:20 | disposition home or self-care (01) | DRG 560 ==
LOC: BURMED 16:35
PROVIDERS: ADMIT Family Medicine; ATTEND Internal Medicine
DX: Z47.1 Aftercare following joint replacement surgery (principal); Z68.42 Body mass index [BMI] 45.0-49.9, adult; M06.9 Rheumatoid arthritis, unspecified; E78.5 Hyperlipidemia, unspecified; D50.9 Iron deficiency anemia, unspecified; E66.9 Obesity, unspecified; I10 Essential (primary) hypertension; K21.9 Gastro-esophageal reflux disease without esophagitis